=== PATIENT | female | born 1975 | race Two or more races ===

== ENCOUNTER 2021-05-10 13:54 | Inpatient (IN) | payer MEDICAID ==
[~2021-05-10] VITALS: Ht 152.4 cm; Wt 72.6 kg
[2021-05-10] VITALS (8 sets, daily range): BP systolic 111–123; BP diastolic 64–82
[2021-05-10 14:29] LABS: Basophils # (auto) 0.1 10 ^3/uL (0-0.2); White Blood Cell 7.2 10^3/uL (4.4-10.8)
[2021-05-10 14:40] LABS: Eosinophils # (auto) 0.5 10 ^3/uL (0-0.8); Eosinophils % (auto) 6.3 % (0.0-7.0); Hematocrit 19.4 % (36.0-46.0); Lymphocytes # (auto) 2.2 10 ^3/uL (0.4-5.4); Mean Corpuscular Hgb Conc. 27.8 g/dL (32.0-36.0); Monocytes # (auto) 0.4 10 ^3/uL (0-1.3); Monocytes % (auto) 6.1 % (0.0-12.0); Neutrophils % (auto) 55.6 % (37.0-80.0); Nucleated Red Blood Cells % 0.3 %; Red Blood Cells 3.59 10^6/uL (4.0-5.20)
[2021-05-10 14:44] LABS: INR 1.06 (0.9-1.15); Partial Thromboplastin Time 21.7 sec (23.0-31.2)
[2021-05-10 14:54] LABS: % Iron Saturation 3.2 % (15-50)
[2021-05-10 15:00] LABS: Hemoglobin 5.4 g/dL (12.2-16.2); Red Cell Distribution Width 23.4 % (11.8-14.3)
[2021-05-10 15:02] LABS: Folate (Folic Acid) > 24.00 ng/mL (5.38-24)
[2021-05-10 15:28] LABS: BUN/Creatinine Ratio 12.5; Bilirubin, Total 1.1 mg/dL (0.2-1.0); Calcium 8.8 mg/dL (8.5-10.1); Potassium 3.4 mmol/L (3.5-5.1); Total Protein 8.5 g/dL (6.4-8.2)
[2021-05-10] MEDS ORDERED: SODIUM CHLORIDE 0.9% 1,000 ML IV ONE (15:45)
[2021-05-10 17:33] LABS: Follicle Stimulating Hormone 27.12 IU/L (SEE BELOW); Leuteinizing Hormone 50.3 IU/L
[2021-05-10 17:54] LABS: Urine Amorphous Crystal FEW /hpf (None Seen); Urine Bacteria FEW /hpf (None Seen); Urine Blood Negative /uL (Negative); Urine Mucus FEW (None Seen); Urine Specific Gravity 1.011 (1.001-1.035); Urine WBC 1 /hpf (0 - 5)
[2021-05-10] MEDS ORDERED: ONDANSETRON HCL 4 MG/2 ML VIAL IV PRN ×2 (18:15)
[2021-05-10] MEDS ORDERED: HYDROcodone-ACET 5/325MG TAB PO PRN ×2 (18:15)
[2021-05-10] MEDS ORDERED: HYDROmorphone HCL 2 MG/ML VL IV PRN (18:15)
[2021-05-10] MEDS ORDERED: TEMAZEPAM 15 MG CAP PO PRN (18:15)
[2021-05-10] MEDS ORDERED: NITROGLYCERIN 0.4 MG SL TAB SL PRN ×2 (18:15)
[2021-05-10] MEDS ORDERED: ALUM & MAG HYDROX-SIMETH LIQ(MAALOX) 30 ML PO PRN (18:15)
[2021-05-10] MEDS ORDERED: ACETAMINOPHEN 500 MG TAB PO PRN (18:15)
[2021-05-10] MEDS ORDERED: MORPHINE SULF INJ 2 MG/ML SYRINGE 1ML IV PRN ×3 (18:15)
[2021-05-10] MEDS ORDERED: ACETAMINOPHEN 325 MG TAB PO PRN (18:15)
[2021-05-10] MEDS ORDERED: DOCUSATE SOD 100 MG CAP PO PRN (18:15)
[2021-05-10] MEDS: PANTOPRAZOLE 40 MG/10 ML VIAL INJ IV SCH (21:34)
[2021-05-10] MEDS: SODIUM CHLOR 0.9% PF (SALINE LOCK) 10ML VIAL/SYR IV SCH (21:34)
[2021-05-11 05:00] VITALS: BP 104/57
[2021-05-11 05:48] LABS: Basophils # (auto) 0.1 10 ^3/uL (0-0.2); Eosinophils # (auto) 0.4 10 ^3/uL (0-0.8); Lymphocytes # (auto) 2.2 10 ^3/uL (0.4-5.4)
[2021-05-11 05:51] LABS: Basophils % (auto) 1.4 % (0.0-2.0); Eosinophils % (auto) 6.3 % (0.0-7.0); Hematocrit 26.4 % (36.0-46.0); Lymphocytes % (auto) 34.1 % (10.0-50.0); Mean Corpuscular Hemoglobin 19.3 pg (28.0-32.0); Mean Corpuscular Hgb Conc. 30.4 g/dL (32.0-36.0); Mean Corpuscular Volume 63.6 fL (80.0-100.0); Monocytes # (auto) 0.4 10 ^3/uL (0-1.3); Monocytes % (auto) 5.9 % (0.0-12.0); Neutrophils # (auto) 3.3 10 ^3/uL (1.6-8.6); Neutrophils % (auto) 52.3 % (37.0-80.0); Nucleated Red Blood Cells % 0.4 %; Red Blood Cells 4.16 10^6/uL (4.0-5.20); White Blood Cell 6.3 10^3/uL (4.4-10.8)
[2021-05-11] MEDS: SODIUM CHLOR 0.9% PF (SALINE LOCK) 10ML VIAL/SYR IV SCH ×2 (06:00→13:59)
[2021-05-11 06:05] LABS: Red Cell Distribution Width 33.4 % (11.8-14.3)
[2021-05-11 06:22] LABS: Potassium 3.8 mmol/L (3.5-5.1)
[2021-05-11 06:40] LABS: Albumin 3.6 g/dL (3.4-5.0); BUN/Creatinine Ratio 12.5; Bilirubin, Total 1.3 mg/dL (0.2-1.0); Calcium 8.4 mg/dL (8.5-10.1); Total Protein 7.8 g/dL (6.4-8.2)
[2021-05-11] MEDS ORDERED: ERGOCALCIFEROL 50,000 UNIT(1.25MG) CAP PO SCH (08:00)
[2021-05-11 09:00] VITALS: BP 114/68
[2021-05-11] MEDS: PANTOPRAZOLE 40 MG/10 ML VIAL INJ IV SCH (09:49)
[2021-05-11 10:42] LABS: Hemoglobin 8.3 g/dL (12.2-16.2)
[2021-05-11 10:44] LABS: Hematocrit 27.5 % (36.0-46.0)
[2021-05-11 12:50] VITALS: BP 116/60
[2021-05-11 13:18] VITALS: BP 116/60
== END 2021-05-11 14:30 | disposition home or self-care (01) | DRG 761 ==
LOC: ER 13:54 → OVERFLOW 18:09 → CENTRAL 20:12
PROVIDERS: ADMIT Internal Medicine; ATTEND Internal Medicine
PROC: 30233N1 Transfusion of Nonautologous Red Blood Cells into Peripheral Vein, Percutaneous Approach (ICD-10-PCS; principal; 2021-05-10)
DX: N92.0 Excessive and frequent menstruation with regular cycle (principal); E55.9 Vitamin D deficiency, unspecified; D25.1 Intramural leiomyoma of uterus; D64.9 Anemia, unspecified; E66.9 Obesity, unspecified; Z68.31 Body mass index [BMI] 31.0-31.9, adult; N83.202 Unspecified ovarian cyst, left side; N83.291 Other ovarian cyst, right side; Z20.822 Contact with and (suspected) exposure to COVID-19; K29.70 Gastritis, unspecified, without bleeding
CPT/HCPCS: 36415; 36430; 74176; 76830; 76856; 80053; 80061; 81001; 82306; 82378; 82607; 82670; 82728; 82746; 83001; 83002; 83036; 83540; 83550; 84425; 84443; 85014; 85018; 85025; 85045; 85610; 85730; 86304; 86677; 86850; 86900; 86901; 86920; 87426; 93005; 96360; C9113; G0378

== ENCOUNTER → 2021-05-17 | Outpatient (CLI) | payer SELFPAY ==
[2021-05-17 11:25] LABS: Basophils # (auto) 0.1 10 ^3/uL (0-0.2); Basophils % (auto) 1.1 % (0.0-2.0); Eosinophils # (auto) 0.5 10 ^3/uL (0-0.8); Eosinophils % (auto) 7.7 % (0.0-7.0); Hematocrit 28.6 % (36.0-46.0); Hemoglobin 8.6 g/dL (12.2-16.2); Lymphocytes # (auto) 1.6 10 ^3/uL (0.4-5.4); Lymphocytes % (auto) 22.8 % (10.0-50.0); Mean Corpuscular Hemoglobin 19.7 pg (28.0-32.0); Mean Corpuscular Hgb Conc. 30.1 g/dL (32.0-36.0); Mean Corpuscular Volume 65.4 fL (80.0-100.0); Monocytes # (auto) 0.5 10 ^3/uL (0-1.3); Monocytes % (auto) 6.7 % (0.0-12.0); Neutrophils # (auto) 4.3 10 ^3/uL (1.6-8.6); Neutrophils % (auto) 61.7 % (37.0-80.0); Nucleated Red Blood Cells % 0.1 %; Red Blood Cells 4.37 10^6/uL (4.0-5.20); White Blood Cell 6.9 10^3/uL (4.4-10.8)
[2021-05-17 11:26] LABS: Red Cell Distribution Width 36.2 % (11.8-14.3)
[2021-05-17 15:40] LABS: Follicle Stimulating Hormone 2.52 IU/L (SEE BELOW); Leuteinizing Hormone 3.5 IU/L
== END | disposition home or self-care (01) ==
LOC: LAB 10:54
PROVIDERS: ATTEND Obstetrics & Gynecology
DX: N92.0 Excessive and frequent menstruation with regular cycle (principal)
CPT/HCPCS: 36415; 82670; 83001; 83002; 84403; 84443; 85025

== ENCOUNTER → 2021-11-04 | Outpatient (CLI) | payer MEDICAID ==
[2021-11-04 15:19] LABS: Basophils # (auto) 0.1 10 ^3/uL (0-0.2); Basophils % (auto) 0.7 % (0.0-2.0); Eosinophils # (auto) 0.2 10 ^3/uL (0-0.8); Eosinophils % (auto) 3.4 % (0.0-7.0); Hemoglobin 12.8 g/dL (12.2-16.2); Lymphocytes # (auto) 2.2 10 ^3/uL (0.4-5.4); Lymphocytes % (auto) 30.1 % (10.0-50.0); Mean Corpuscular Hemoglobin 27.1 pg (28.0-32.0); Mean Corpuscular Hgb Conc. 33.6 g/dL (32.0-36.0); Mean Corpuscular Volume 80.6 fL (80.0-100.0); Monocytes # (auto) 0.7 10 ^3/uL (0-1.3); Monocytes % (auto) 9.8 % (0.0-12.0); Neutrophils # (auto) 4.1 10 ^3/uL (1.6-8.6); Nucleated Red Blood Cells % 0.1 %; Red Blood Cells 4.71 10^6/uL (4.0-5.20); Red Cell Distribution Width 13.9 % (11.8-14.3); White Blood Cell 7.3 10^3/uL (4.4-10.8)
== END | disposition home or self-care (01) ==
LOC: LAB 14:50
PROVIDERS: ATTEND Obstetrics & Gynecology Obstetrics
DX: D64.9 Anemia, unspecified (principal)
CPT/HCPCS: 36415; 82728; 85025

== ENCOUNTER 2022-03-10 07:04 | Day surgery (SDC) | payer MEDICAID ==
[2022-03-08 13:18] LABS: Basophils # (auto) 0.1 10 ^3/uL (0-0.2); Basophils % (auto) 1.1 % (0.0-2.0); Eosinophils # (auto) 0.6 10 ^3/uL (0-0.8); Eosinophils % (auto) 6.5 % (0.0-7.0); Hematocrit 43.4 % (36.0-46.0); Hemoglobin 14.7 g/dL (12.2-16.2); Lymphocytes # (auto) 2.8 10 ^3/uL (0.4-5.4); Lymphocytes % (auto) 29.8 % (10.0-50.0); Mean Corpuscular Hemoglobin 27.7 pg (28.0-32.0); Mean Corpuscular Hgb Conc. 33.8 g/dL (32.0-36.0); Monocytes # (auto) 0.7 10 ^3/uL (0-1.3); Neutrophils # (auto) 5.2 10 ^3/uL (1.6-8.6); Neutrophils % (auto) 55.6 % (37.0-80.0); Nucleated Red Blood Cells % 0.1 %; Red Blood Cells 5.29 10^6/uL (4.0-5.20); Red Cell Distribution Width 16.5 % (11.8-14.3); White Blood Cell 9.4 10^3/uL (4.4-10.8)
[2022-03-08 13:28] LABS: Urine Bacteria NONE SEEN /hpf (None Seen); Urine Blood 2+ /uL (Negative); Urine Mucus FEW (None Seen); Urine Specific Gravity 1.017 (1.001-1.035); Urine WBC 2 /hpf (0 - 5)
[2022-03-08 13:32] LABS: INR 1.05 (0.9-1.15); Partial Thromboplastin Time 28.8 sec (23.6-33.0)
[2022-03-08 13:50] LABS: Albumin 3.7 g/dL (3.4-5.0); BUN/Creatinine Ratio 18.6; Calcium 8.6 mg/dL (8.5-10.1); Potassium 3.7 mmol/L (3.5-5.1)
[2022-03-08 13:52] LABS: Bilirubin, Total 0.4 mg/dL (0.2-1.0); Total Protein 8.5 g/dL (6.4-8.2)
[~2022-03-10] VITALS: Ht 152.4 cm; Wt 78.9 kg
[~2022-03-10 07:04] MED LIST: IRONCAP19 OR; VITACAP46 OR
[2022-03-10] MEDS ORDERED: ceFAZolin 1GM/50ML 100 ML IV ONE (07:31)
[2022-03-10] MEDS ORDERED: MIDAZOLAM HCL 2MG/2ML 2ml VIAL (1mg/ml) ONE (08:35)
[2022-03-10] MEDS ORDERED: fentaNYL CITRATE 100 MCG/2 ML VL ONE (08:35)
[2022-03-10] MEDS ORDERED: DexAMETHasone SOD PHOS 10MG/1ML VIAL INJ ONE (08:39)
[2022-03-10] MEDS ORDERED: PROPOFOL 10 MG/ML 20 ML IV ONE (08:39)
[2022-03-10] MEDS ORDERED: METOCLOPRAMIDE HCL 5MG/ml INJ 2ml VIAL ONE (08:39)
[2022-03-10] MEDS ORDERED: ONDANSETRON HCL 4 MG/2 ML VIAL ONE (08:39)
[2022-03-10] MEDS ORDERED: ONDA-144 PO (09:32)
[2022-03-10] MEDS ORDERED: HYDR-4902 PO (09:32)
[2022-03-10] MEDS ORDERED: LACTATED RINGER'S 1,000 ML IV SCH (09:45)
[2022-03-10] MEDS ORDERED: HYDROmorphone HCL 2 MG/ML VL/or syr IV PRN (09:45)
[2022-03-10] MEDS ORDERED: ONDANSETRON HCL 4 MG/2 ML VIAL IV PRN ×2 (09:45)
[2022-03-10] MEDS ORDERED: fentaNYL CITRATE 100 MCG/2 ML VL IV PRN (09:45)
[2022-03-10] MEDS ORDERED: METOCLOPRAMIDE HCL 5MG/ml INJ 2ml VIAL IV PRN (09:45)
[2022-03-10] MEDS ORDERED: HYDROmorphone HCL 2 MG/ML VL/or syr IV ONE ×2 (10:05→10:18)
[2022-03-10 10:35] VITALS: BP 124/76
== END 2022-03-10 10:35 | disposition home or self-care (01) ==
LOC: SUR 07:04
PROVIDERS: ATTEND Obstetrics & Gynecology
DX: N92.0 Excessive and frequent menstruation with regular cycle (principal); I10 Essential (primary) hypertension; Z90.49 Acquired absence of other specified parts of digestive tract; Z98.890 Other specified postprocedural states; Z79.899 Other long term (current) drug therapy; Z20.822 Contact with and (suspected) exposure to COVID-19; Z83.3 Family history of diabetes mellitus; Z86.2 Personal history of diseases of the blood and blood-forming organs and certain disorders involving the immune mechanism
CPT/HCPCS: 36415; 58563; 80053; 81001; 81025; 84702; 85025; 85610; 85730; 86850; 86900; 86901; 88305; J0690; J1100; J1170; J2250; J2405; J2704; J2765; J3010; U0003

== ENCOUNTER → 2022-05-24 | Outpatient (CLI) | payer MEDICAID ==
[~2022-05-24] MED LIST changes: +HYDR-4902 PO; +ONDA-144 PO
== END | disposition home or self-care (01) ==
LOC: LAB 08:08
PROVIDERS: ATTEND Student in an Organized Health Care Education/Training Program
DX: R79.89 Other specified abnormal findings of blood chemistry (principal)
CPT/HCPCS: 36415; 84439; 84443

== ENCOUNTER → 2022-08-28 | Outpatient (CLI) | payer MEDICAID | END | disposition home or self-care (01) | LOC: XYW 10:13 | PROVIDERS: ATTEND Internal Medicine | DX: I07.1 Rheumatic tricuspid insufficiency (principal); R07.89 Other chest pain | CPT/HCPCS: 93306 ==

== ENCOUNTER → 2022-09-01 | Outpatient (CLI) | payer MEDICAID | END | disposition home or self-care (01) | LOC: XYW 08:14 | PROVIDERS: ATTEND Internal Medicine | DX: R07.89 Other chest pain (principal); E78.5 Hyperlipidemia, unspecified; R73.03 Prediabetes; Z68.32 Body mass index [BMI] 32.0-32.9, adult | CPT/HCPCS: 78452; 93017; A9500 ==

== ENCOUNTER 2023-02-07 06:40 | Emergency (ER) | payer MEDICAID ==
[~2023-02-07] VITALS: Ht 152.4 cm; Wt 80.0 kg
[2023-02-07 07:21] VITALS: BP 150/96
[2023-02-07] MEDS ORDERED: KETOROLAC TROMETH 60MG/2ML VIAL IM ONE (07:30)
[2023-02-07] MEDS ORDERED: PRED20TA2 PO (08:29)
[2023-02-07] MEDS ORDERED: IBUP800T27 PO (08:29)
== END 2023-02-07 08:32 | disposition home or self-care (01) ==
LOC: ER 06:40
DX: M54.41 Lumbago with sciatica, right side (principal); E66.01 Morbid (severe) obesity due to excess calories; E78.5 Hyperlipidemia, unspecified; Z68.34 Body mass index [BMI] 34.0-34.9, adult; Z88.6 Allergy status to analgesic agent
CPT/HCPCS: 72100; 96372; 99283; J1885

== ENCOUNTER → 2023-05-14 | Outpatient (CLI) | payer MEDICAID ==
[~2023-05-14] MED LIST changes: +IBUP-1456 PO; +PRED20TA2 PO
[2023-05-14 08:58] LABS: Basophils # (auto) 0.1 10 ^3/uL (0-0.2); Basophils % (auto) 1.3 % (0.0-2.0); Eosinophils # (auto) 0.3 10 ^3/uL (0-0.8); Eosinophils % (auto) 4.5 % (0.0-7.0); Hematocrit 42.5 % (36.0-46.0); Hemoglobin 14.7 g/dL (12.2-16.2); Lymphocytes # (auto) 2.6 10 ^3/uL (0.4-5.4); Mean Corpuscular Hemoglobin 29.8 pg (28.0-32.0); Mean Corpuscular Hgb Conc. 34.5 g/dL (32.0-36.0); Mean Corpuscular Volume 86.1 fL (80.0-100.0); Monocytes # (auto) 0.5 10 ^3/uL (0-1.3); Monocytes % (auto) 7.3 % (0.0-12.0); Neutrophils # (auto) 3.5 10 ^3/uL (1.6-8.6); Neutrophils % (auto) 49.9 % (37.0-80.0); Nucleated Red Blood Cells % 0.2 %; Red Blood Cells 4.94 10^6/uL (4.0-5.20); White Blood Cell 7.1 10^3/uL (4.4-10.8)
[2023-05-14 09:08] LABS: Urine Bacteria FEW /hpf (None Seen); Urine Blood 1+ /uL (Negative); Urine Mucus FEW (None Seen); Urine Specific Gravity 1.018 (1.001-1.035); Urine WBC 16 /hpf (0 - 5)
[2023-05-14 09:41] LABS: Potassium 3.3 mmol/L (3.5-5.1)
[2023-05-14 09:52] LABS: Albumin 3.6 g/dL (3.4-5.0); BUN/Creatinine Ratio 11.7 (10.0-20.0); Bilirubin, Total 0.6 mg/dL (0.2-1.0); Total Protein 8.1 g/dL (6.4-8.2)
== END | disposition home or self-care (01) ==
LOC: LAB 08:40
PROVIDERS: ATTEND Student in an Organized Health Care Education/Training Program
DX: E78.5 Hyperlipidemia, unspecified (principal); R73.9 Hyperglycemia, unspecified; R03.0 Elevated blood-pressure reading, without diagnosis of hypertension
CPT/HCPCS: 36415; 80053; 80061; 81001; 83036; 85025

== ENCOUNTER → 2023-07-04 | Outpatient (CLI) | payer MEDICAID ==
[2023-07-04 09:18] LABS: Basophils # (auto) 0.1 10 ^3/uL (0-0.2); Eosinophils # (auto) 0.5 10 ^3/uL (0-0.8); Eosinophils % (auto) 7.9 % (0.0-7.0); Hematocrit 43.9 % (36.0-46.0); Hemoglobin 14.8 g/dL (12.2-16.2); Lymphocytes # (auto) 2.3 10 ^3/uL (0.4-5.4); Mean Corpuscular Hemoglobin 28.8 pg (28.0-32.0); Mean Corpuscular Hgb Conc. 33.7 g/dL (32.0-36.0); Mean Corpuscular Volume 85.4 fL (80.0-100.0); Monocytes # (auto) 0.4 10 ^3/uL (0-1.3); Monocytes % (auto) 6.4 % (0.0-12.0); Neutrophils % (auto) 47.7 % (37.0-80.0); Nucleated Red Blood Cells % 0.1 %; Red Blood Cells 5.14 10^6/uL (4.0-5.20); Red Cell Distribution Width 13.3 % (11.8-14.3); White Blood Cell 6.3 10^3/uL (4.4-10.8)
[2023-07-04 10:40] LABS: Alanine Aminotransferase 131 U/L (7-40); Alkaline Phosphatase 77 U/L (46-116); Anion Gap 7.3 (5-15); Aspartate Aminotransferase 69 U/L (13-40); BUN/Creatinine Ratio 10.8 (10.0-20.0); Blood Urea Nitrogen 7 mg/dL (9-23); Calcium 9.7 mg/dL (8.5-10.1); Carbon Dioxide 27.7 mmol/L (20-30); Chloride 106 mmol/L (98-107); Glucose 127 mg/dL (74-106); Potassium 3.8 mmol/L (3.5-5.1); Sodium 141 mmol/L (136-145)
[2023-07-04 10:41] LABS: Bilirubin, Total 0.9 mg/dL (0.2-1.0)
[2023-07-04 10:43] LABS: Albumin 4.5 g/dL (3.2-4.8)
[2023-07-04 10:47] LABS: Follicle Stimulating Hormone 32.5 IU/L (SEE BELOW)
[2023-07-04 10:48] LABS: Free T3 2.96 pg/mL (2.3-4.2)
[2023-07-05 08:06] LABS: Estradiol 5.1 pg/mL (.); Thyroxine (T4) 6.9 ug/dL (4.5-12.0)
== END | disposition home or self-care (01) ==
LOC: LAB 08:59
PROVIDERS: ATTEND Obstetrics & Gynecology
DX: Z13.220 Encounter for screening for lipoid disorders (principal); E55.9 Vitamin D deficiency, unspecified; N95.1 Menopausal and female climacteric states; E53.9 Vitamin B deficiency, unspecified; E07.89 Other specified disorders of thyroid; E34.9 Endocrine disorder, unspecified
CPT/HCPCS: 36415; 80053; 82306; 82607; 82670; 83001; 84144; 84402; 84403; 84436; 84443; 84481; 85025; 86376

== ENCOUNTER → 2023-11-20 | Outpatient (CLI) | payer MEDICAID ==
[2023-11-20 15:26] LABS: Urine Epithelial Cast None Seen /hpf (<5)
[2023-11-20 15:41] LABS: Basophils # (auto) 0.1 10 ^3/uL (0-0.2); Basophils % (auto) 0.7 % (0.0-2.0); Eosinophils # (auto) 0.2 10 ^3/uL (0-0.8); Hematocrit 43.7 % (36.0-46.0); Hemoglobin 14.6 g/dL (12.2-16.2); Lymphocytes # (auto) 2.6 10 ^3/uL (0.4-5.4); Lymphocytes % (auto) 33.6 % (10.0-50.0); Mean Corpuscular Hgb Conc. 33.4 g/dL (32.0-36.0); Mean Corpuscular Volume 83.9 fL (80.0-100.0); Monocytes # (auto) 0.3 10 ^3/uL (0-1.3); Monocytes % (auto) 4.4 % (0.0-12.0); Neutrophils # (auto) 4.5 10 ^3/uL (1.6-8.6); Neutrophils % (auto) 58.3 % (37.0-80.0); Nucleated Red Blood Cells % 0.3 %; Red Blood Cells 5.21 10^6/uL (4.0-5.20); Red Cell Distribution Width 14.6 % (11.8-14.3); White Blood Cell 7.8 10^3/uL (4.4-10.8)
[2023-11-20 15:49] LABS: Anion Gap 8 (5-15); Carbon Dioxide 25 mmol/L (20-30); Chloride 106 mmol/L (98-107); Potassium 3.6 mmol/L (3.5-5.1); Sodium 139 mmol/L (136-145); Urine Bacteria NONE SEEN /hpf (None Seen); Urine Blood 1+ /uL (Negative); Urine Clarity HAZY (Clear); Urine Color Yellow (Yellow); Urine Protein, UAD Negative (Negative); Urine Specific Gravity 1.015 (1.001-1.035); Urine Urobilinogen Normal (Negative); Urine WBC 7 /hpf (0 - 5); Urine pH 5.5 (5.0-8.0)
[2023-11-20 15:50] LABS: Calcium 9.7 mg/dL (8.5-10.1)
[2023-11-20 15:55] LABS: BUN/Creatinine Ratio 9.5 (10.0-20.0); Blood Urea Nitrogen 7 mg/dL (9-23); Glucose 173 mg/dL (74-106)
[2023-11-20 15:56] LABS: INR 1.05 (0.9-1.15)
== END | disposition home or self-care (01) ==
LOC: LAB 15:12
PROVIDERS: ATTEND Obstetrics & Gynecology
DX: Z01.812 Encounter for preprocedural laboratory examination (principal); Z12.11 Encounter for screening for malignant neoplasm of colon; N39.0 Urinary tract infection, site not specified; M79.89 Other specified soft tissue disorders; D53.8 Other specified nutritional anemias
CPT/HCPCS: 36415; 80048; 81001; 82270; 85025; 85610; 85730; 87086

== ENCOUNTER 2023-11-26 06:12 | Inpatient (IN) | payer MEDICAID ==
[~2023-11-26] VITALS: Ht 152.4 cm; Wt 82.0 kg
[2023-11-26] MEDS: ceFAZolin 2 GM/D5W100ml 100 ML IV ONE (06:39)
[2023-11-26] MEDS: SUCCINYLCHOLINE CHLORIDE 20 MG/ML 10ML VIAL IV ONE (07:05)
[2023-11-26] MEDS ORDERED: fentaNYL CITRATE 100 MCG/2 ML VL ONE (07:08)
[2023-11-26] MEDS ORDERED: PROPOFOL 10 MG/ML 20 ML IV ONE (07:09)
[2023-11-26] MEDS ORDERED: ROCURONIUM 10MG/ML 10ML VIAL IV ONE (08:23)
[2023-11-26] MEDS ORDERED: ONDANSETRON HCL 4 MG/2 ML VIAL ONE (08:29)
[2023-11-26] MEDS ORDERED: DexAMETHasone SOD PHOS 10MG/1ML VIAL INJ ONE (08:29)
[2023-11-26] MEDS ORDERED: MEPERIDINE HCL (50 MG/ML) 1 ML VIAL ONE (08:50)
[2023-11-26] MEDS: ROPIVACAINE 0.5% (5MG/ML) 20ML AMPULE IJ ONE (08:53)
[2023-11-26] MEDS: BUPIVACAINE 0.25% INJ 50ML VIAL ONE (10:00)
[2023-11-26] MEDS: CONJ ESTROGENS 0.625MG/GM VAG CRM 30GM PV ONE (10:00)
[2023-11-26] MEDS ORDERED: SUGAMMADEX 200mg/2ml Vial (100MG/ML) IV ONE (10:05)
[2023-11-26 10:23] VITALS: O2SAT 97
[2023-11-26] MEDS: ceFAZolin 1GM/50ML 50 ML IV ONE (10:30)
[2023-11-26] MEDS ORDERED: NITROGLYCERIN 0.4 MG SL TAB SL PRN (10:30)
[2023-11-26] MEDS ORDERED: ACETAMINOPHEN 500 MG TAB PO PRN (10:30)
[2023-11-26] MEDS ORDERED: MORPHINE SULFATE INJ 2 MG/ml SYRG IV PRN (10:30)
[2023-11-26] MEDS ORDERED: MEPERIDINE HCL (25 MG/ML) 1ML VIAL IV PRN (10:45)
[2023-11-26] MEDS: HYDROmorphone HCL 2 MG/ML VL/or syr IV PRN (12:56)
[2023-11-26] MEDS: ONDANSETRON HCL 4 MG/2 ML VIAL IV PRN ×2 (13:12→18:16)
[2023-11-26 17:11] VITALS: BP 112/70; PULSE 72; RESP 16; TEMP 97.4; O2SAT 95
[2023-11-26 17:51] VITALS: BP 112/70; PULSE 72; RESP 16; TEMP 97.4; O2SAT 95
[2023-11-26] MEDS: SODIUM CHLORIDE 0.9% 1,000 ML IV SCH (17:58)
[2023-11-26] MEDS: MORPHINE SULFATE 4 MG/ML SYR/VIAL IV PRN (18:17)
[2023-11-26 20:00] VITALS: PULSE 79; RESP 16; O2SAT 95
[2023-11-26 22:00] VITALS: BP 109/71; PULSE 79; RESP 16; TEMP 98.3; O2SAT 93
[2023-11-27 07:11] LABS: Basophils # (auto) 0 10 ^3/uL (0-0.2); Basophils % (auto) 0.2 % (0.0-2.0); Eosinophils # (auto) 0 10 ^3/uL (0-0.8); Hemoglobin 13.1 g/dL (12.2-16.2); Lymphocytes # (auto) 1.7 10 ^3/uL (0.4-5.4); Lymphocytes % (auto) 11.3 % (10.0-50.0); Mean Corpuscular Hemoglobin 27.5 pg (28.0-32.0); Mean Corpuscular Hgb Conc. 32.7 g/dL (32.0-36.0); Mean Corpuscular Volume 84.1 fL (80.0-100.0); Monocytes % (auto) 6.9 % (0.0-12.0); Neutrophils # (auto) 12.1 10 ^3/uL (1.6-8.6); Neutrophils % (auto) 81.6 % (37.0-80.0); Red Blood Cells 4.76 10^6/uL (4.0-5.20); Red Cell Distribution Width 14.4 % (11.8-14.3); White Blood Cell 14.8 10^3/uL (4.4-10.8)
[2023-11-27 08:00] VITALS: PULSE 76; RESP 18
[2023-11-27 09:15] VITALS: BP 114/75; PULSE 87; RESP 17; TEMP 98.2; O2SAT 93
[2023-11-27 12:52] VITALS: BP 112/58; PULSE 88; RESP 17; TEMP 98.7; O2SAT 94
[2023-11-27 17:00] VITALS: BP 108/59; PULSE 85; RESP 16; TEMP 98.7; O2SAT 94
[2023-11-27 20:00] VITALS: PULSE 91; RESP 18; O2SAT 95
[2023-11-27 22:00] VITALS: BP 158/85; PULSE 91; RESP 18; TEMP 98.3; O2SAT 95
[2023-11-28 05:00] VITALS: BP 110/62; PULSE 82; RESP 16; TEMP 98; O2SAT 96
[2023-11-28 08:00] VITALS: PULSE 78; RESP 18; O2SAT 97
[2023-11-28 09:00] VITALS: BP 109/67; PULSE 77; RESP 16; TEMP 99.3; O2SAT 95
[2023-11-28 13:00] VITALS: BP 121/69; PULSE 85; RESP 18; TEMP 98; O2SAT 95
[2023-11-28 17:59] VITALS: BP 133/72; PULSE 89; RESP 18; TEMP 98.6; O2SAT 94
[2023-11-28 22:00] VITALS: BP 106/67; PULSE 95; RESP 18; TEMP 98.5; O2SAT 91
[2023-11-29] MEDS: HYDROcodone-ACET 5/325MG TAB PO PRN (01:35)
[2023-11-29 05:00] VITALS: BP 114/75; PULSE 79; RESP 18; TEMP 98.4; O2SAT 92
[2023-11-29 05:08] LABS: Basophils # (auto) 0.1 10 ^3/uL (0-0.2); Basophils % (auto) 0.5 % (0.0-2.0); Eosinophils # (auto) 0.2 10 ^3/uL (0-0.8); Eosinophils % (auto) 1.5 % (0.0-7.0); Hematocrit 41.3 % (36.0-46.0); Hemoglobin 13.5 g/dL (12.2-16.2); Lymphocytes % (auto) 25.6 % (10.0-50.0); Mean Corpuscular Hemoglobin 27.9 pg (28.0-32.0); Mean Corpuscular Hgb Conc. 32.7 g/dL (32.0-36.0); Mean Corpuscular Volume 85.3 fL (80.0-100.0); Monocytes # (auto) 0.8 10 ^3/uL (0-1.3); Monocytes % (auto) 6.6 % (0.0-12.0); Neutrophils # (auto) 7.8 10 ^3/uL (1.6-8.6); Neutrophils % (auto) 65.8 % (37.0-80.0); Nucleated Red Blood Cells % 0.2 %; Red Blood Cells 4.84 10^6/uL (4.0-5.20); Red Cell Distribution Width 14.6 % (11.8-14.3); White Blood Cell 11.8 10^3/uL (4.4-10.8)
[2023-11-29 05:18] LABS: Carbon Dioxide 23 mmol/L (20-30); Chloride 106 mmol/L (98-107); Potassium 3.8 mmol/L (3.5-5.1)
[2023-11-29 05:19] LABS: Anion Gap 8 (5-15); Sodium 137 mmol/L (136-145)
[2023-11-29 05:24] LABS: Glucose 118 mg/dL (74-106)
[2023-11-29 05:28] LABS: BUN/Creatinine Ratio 9.3 (10.0-20.0); Blood Urea Nitrogen < 5 mg/dL (9-23)
[2023-11-29 08:35] VITALS: BP 131/78; PULSE 76; RESP 18; TEMP 97.9; O2SAT 92
[2023-11-29 12:30] VITALS: BP 135/75; PULSE 91; RESP 20; TEMP 98.1; O2SAT 92
[2023-11-29 16:25] VITALS: BP 118/82; PULSE 97; RESP 18; TEMP 99.4; O2SAT 98
== END 2023-11-29 18:30 | disposition home health service (06) | DRG 513 ==
LOC: SUR 06:12 → OVERFLOW 10:27 → WEST WING 16:26
PROVIDERS: ADMIT Internal Medicine Pulmonary Disease; ATTEND Obstetrics & Gynecology
PROC: 0UBG7ZZ Excision of Vagina, Via Natural or Artificial Opening (ICD-10-PCS; 2023-11-26)
PROC: 0JQC3ZZ Repair Pelvic Region Subcutaneous Tissue and Fascia, Percutaneous Approach (ICD-10-PCS; 2023-11-26)
PROC: 0TSD4ZZ Reposition Urethra, Percutaneous Endoscopic Approach (ICD-10-PCS; 2023-11-26)
PROC: 0UT9FZZ Resection of Uterus, Via Natural or Artificial Opening With Percutaneous Endoscopic Assistance (ICD-10-PCS; principal; 2023-11-26 08:15)
DX: N81.4 Uterovaginal prolapse, unspecified (principal); E66.9 Obesity, unspecified; D25.9 Leiomyoma of uterus, unspecified; D72.829 Elevated white blood cell count, unspecified; D50.9 Iron deficiency anemia, unspecified; G89.29 Other chronic pain; M54.50 Low back pain, unspecified; Z68.35 Body mass index [BMI] 35.0-35.9, adult
CPT/HCPCS: 36415; 80048; 82962; 84702; 85025; 86850; 86900; 86901; 97110; 97116; 97163; 97530; G0378; J0330; J1100; J2405; J2704; J3490

== ENCOUNTER → 2024-03-18 | Outpatient (CLI) | payer MEDICAID ==
[2024-03-18 08:36] LABS: Basophils # (auto) 0.1 10 ^3/uL (0-0.2); Basophils % (auto) 1.2 % (0.0-2.0); Eosinophils # (auto) 0.4 10 ^3/uL (0-0.8); Hemoglobin 13.8 g/dL (12.2-16.2); Mean Corpuscular Volume 79.8 fL (80.0-100.0)
[2024-03-18 08:41] LABS: Eosinophils % (auto) 5.2 % (0.0-7.0); Hematocrit 41.7 % (36.0-46.0); Lymphocytes # (auto) 2.4 10 ^3/uL (0.4-5.4); Lymphocytes % (auto) 35.1 % (10.0-50.0); Mean Corpuscular Hemoglobin 26.5 pg (28.0-32.0); Mean Corpuscular Hgb Conc. 33.2 g/dL (32.0-36.0); Monocytes # (auto) 0.4 10 ^3/uL (0-1.3); Monocytes % (auto) 6.4 % (0.0-12.0); Neutrophils # (auto) 3.6 10 ^3/uL (1.6-8.6); Neutrophils % (auto) 52.1 % (37.0-80.0); Nucleated Red Blood Cells % 0.1 %; Red Blood Cells 5.23 10^6/uL (4.0-5.20); Red Cell Distribution Width 14.5 % (11.8-14.3)
[2024-03-18 08:51] LABS: Urine Bacteria FEW /hpf (None Seen); Urine Blood 1+ /uL (Negative); Urine Clarity Clear (Clear); Urine Color Light-Yellow (Yellow); Urine Mucus FEW (None Seen); Urine Protein, UAD Negative (Negative); Urine Specific Gravity 1.015 (1.001-1.035); Urine Urobilinogen Normal (Negative); Urine WBC 2 /hpf (0 - 5); Urine pH 6.5 (5.0-9.0)
[2024-03-18 09:05] LABS: % Iron Saturation 22.9 % (15-50)
[2024-03-18 09:09] LABS: Alanine Aminotransferase 151 U/L (7-40); Alkaline Phosphatase 104 U/L (46-116); Anion Gap 5 (5-15); BUN/Creatinine Ratio 10.2 (10.0-20.0); Blood Urea Nitrogen 6 mg/dL (9-23); Calcium 9.6 mg/dL (8.5-10.1); Carbon Dioxide 28 mmol/L (20-30); Chloride 106 mmol/L (98-107); Glucose 122 mg/dL (74-106); LDL Cholesterol 139 mg/dL (< 100); Potassium 3.5 mmol/L (3.5-5.1); Sodium 139 mmol/L (136-145); Triglycerides 215 mg/dL (< 150)
[2024-03-18 09:10] LABS: Albumin 4.3 g/dL (3.2-4.8); Aspartate Aminotransferase 80 U/L (13-40)
[2024-03-18 09:11] LABS: Bilirubin, Total 0.7 mg/dL (0.2-1.0); Cholesterol 202 mg/dL (< 200); HDL Cholesterol 39 mg/dL (40-59); Total Protein 7.8 g/dL (5.7-8.2)
== END | disposition home or self-care (01) ==
LOC: LAB 08:17
PROVIDERS: ATTEND Student in an Organized Health Care Education/Training Program
DX: D64.9 Anemia, unspecified (principal); E78.5 Hyperlipidemia, unspecified; R73.9 Hyperglycemia, unspecified
CPT/HCPCS: 36415; 80053; 80061; 81001; 82728; 83036; 83540; 83550; 84443; 85025

== ENCOUNTER → 2024-09-11 | Outpatient (CLI) | payer MEDICAID ==
[2024-09-11 10:19] LABS: Urine Bacteria FEW /hpf (None Seen); Urine Blood 1+ /uL (Negative); Urine Clarity Turbid (Clear); Urine Color Yellow (Yellow); Urine Mucus FEW (None Seen); Urine Protein, UAD TRACE (Negative); Urine Specific Gravity 1.023 (1.001-1.035); Urine Urobilinogen Normal (Negative); Urine WBC 8 /hpf (0 - 5); Urine pH 5.5 (5.0-9.0)
[2024-09-11 10:24] LABS: Basophils # (auto) 0.1 10 ^3/uL (0-0.2); Basophils % (auto) 0.7 % (0.0-2.0); Eosinophils # (auto) 0.4 10 ^3/uL (0-0.8); Eosinophils % (auto) 4.5 % (0.0-7.0); Hematocrit 42.2 % (36.0-46.0); Hemoglobin 14.4 g/dL (12.2-16.2); Lymphocytes # (auto) 2.7 10 ^3/uL (0.4-5.4); Lymphocytes % (auto) 30.4 % (10.0-50.0); Mean Corpuscular Hemoglobin 28.5 pg (28.0-32.0); Mean Corpuscular Volume 83.6 fL (80.0-100.0); Monocytes # (auto) 0.6 10 ^3/uL (0-1.3); Monocytes % (auto) 6.4 % (0.0-12.0); Neutrophils # (auto) 5.1 10 ^3/uL (1.6-8.6); Nucleated Red Blood Cells % 0.1 %; Platelet Count (auto) 254 10^3/uL (140-450); Red Blood Cells 5.05 10^6/uL (4.0-5.20); Red Cell Distribution Width 14.5 % (11.8-14.3); White Blood Cell 8.8 10^3/uL (4.4-10.8)
[2024-09-11 10:44] LABS: Alanine Aminotransferase 67 U/L (7-40); Albumin 4.4 g/dL (3.2-4.8); Alkaline Phosphatase 98 U/L (46-116); Anion Gap 10 (5-15); Aspartate Aminotransferase 32 U/L (13-40); BUN/Creatinine Ratio 13.6 (10.0-20.0); Blood Urea Nitrogen 9 mg/dL (9-23); Calcium 9.8 mg/dL (8.7-10.4); Carbon Dioxide 26 mmol/L (20-31); Chloride 104 mmol/L (98-107); Cholesterol 194 mg/dL (< 200); Glucose 122 mg/dL (74-106); LDL Cholesterol 124 mg/dL (< 100); Potassium 3.7 mmol/L (3.5-5.1); Sodium 140 mmol/L (136-145); Triglycerides 238 mg/dL (< 150)
[2024-09-11 10:45] LABS: Bilirubin, Total 0.7 mg/dL (0.2-1.0); HDL Cholesterol 40 mg/dL (40-59); Total Protein 7.9 g/dL (5.7-8.2)
== END | disposition home or self-care (01) ==
LOC: LAB 09:17
PROVIDERS: ATTEND Student in an Organized Health Care Education/Training Program
DX: I10 Essential (primary) hypertension (principal); E78.5 Hyperlipidemia, unspecified; R73.9 Hyperglycemia, unspecified
CPT/HCPCS: 36415; 80053; 80061; 81001; 83036; 84443; 85025

== ENCOUNTER → 2025-01-14 | Outpatient (CLI) | payer MEDICAID ==
[2025-01-14 09:43] LABS: Urine Bacteria None Seen /hpf (None Seen)
[2025-01-14 10:02] LABS: Basophils # (auto) 0.1 10 ^3/uL (0-0.2); Basophils % (auto) 1.3 % (0.0-2.0); Eosinophils # (auto) 0.4 10 ^3/uL (0-0.8); Eosinophils % (auto) 5.8 % (0.0-7.0); Hematocrit 43.4 % (36.0-46.0); Lymphocytes # (auto) 2.6 10 ^3/uL (0.4-5.4); Lymphocytes % (auto) 36.2 % (10.0-50.0); Mean Corpuscular Hemoglobin 28.9 pg (28.0-32.0); Mean Corpuscular Hgb Conc. 34.6 g/dL (32.0-36.0); Mean Corpuscular Volume 83.5 fL (80.0-100.0); Monocytes # (auto) 0.6 10 ^3/uL (0-1.3); Monocytes % (auto) 7.9 % (0.0-12.0); Neutrophils # (auto) 3.5 10 ^3/uL (1.6-8.6); Neutrophils % (auto) 48.8 % (37.0-80.0); Nucleated Red Blood Cells % 0.1 %; Platelet Count (auto) 218 10^3/uL (140-450); Red Cell Distribution Width 13.9 % (11.8-14.3); White Blood Cell 7.1 10^3/uL (4.4-10.8)
[2025-01-14 10:11] LABS: Urine Blood 1+ /uL (Negative); Urine Clarity Turbid (Clear); Urine Color Light-Yellow (Yellow); Urine Mucus FEW (None Seen); Urine Protein, UAD TRACE (Negative); Urine Specific Gravity 1.021 (1.001-1.035); Urine Squamous Epithelial Cell MOD /hpf (<5); Urine Urobilinogen Normal (Negative); Urine WBC 4 /HPF (0-5)
[2025-01-14 10:12] LABS: Alkaline Phosphatase 90 U/L (46-116); Anion Gap 8 (5-15); Aspartate Aminotransferase 28 U/L (13-40); BUN/Creatinine Ratio 11.1 (10.0-20.0); Calcium 10.1 mg/dL (8.7-10.4); Carbon Dioxide 28 mmol/L (20-31); Chloride 105 mmol/L (98-107); Potassium 3.8 mmol/L (3.5-5.1); Sodium 141 mmol/L (136-145)
[2025-01-14 10:13] LABS: Bilirubin, Total 0.8 mg/dL (0.2-1.0)
[2025-01-14 10:19] LABS: Alanine Aminotransferase 53 U/L (7-40); Albumin 4.8 g/dL (3.2-4.8); Blood Urea Nitrogen 8 mg/dL (9-23); Cholesterol 220 mg/dL (< 200); Glucose 133 mg/dL (74-106); HDL Cholesterol 38 mg/dL (40-59); LDL Cholesterol 137 mg/dL (< 100); Total Protein 8.3 g/dL (5.7-8.2); Triglycerides 290 mg/dL (< 150)
== END | disposition home or self-care (01) ==
LOC: LAB 09:30
PROVIDERS: ATTEND Student in an Organized Health Care Education/Training Program
DX: I10 Essential (primary) hypertension (principal); R73.9 Hyperglycemia, unspecified
CPT/HCPCS: 36415; 80053; 80061; 81001; 83036; 84443; 85025

== ENCOUNTER → 2025-01-15 | Outpatient (CLI) | payer MEDICAID | END | disposition home or self-care (01) | LOC: LAB 16:16 | PROVIDERS: ATTEND Student in an Organized Health Care Education/Training Program | DX: I10 Essential (primary) hypertension (principal); R73.9 Hyperglycemia, unspecified | CPT/HCPCS: 82274 ==